=== PATIENT | female | born 1965 | race Caucasian/White ===

== ENCOUNTER → 2023-12-08 14:14 | Outpatient (BNVA) | payer OTHER, SELFPAY | PROVIDERS: Visit Provider Specialist | DX: M79.641 Pain in right hand (principal); M79.642 Pain in left hand; G56.03 Carpal tunnel syndrome, bilateral upper limbs; Z01.818 Encounter for other preprocedural examination | CPT/HCPCS: 36415; 73130; 80053; 81001; 85025 ==

== ENCOUNTER 2024-01-08 07:40 | Day surgery (SDC) | payer OTHER, SELFPAY ==
[2024-01-08] VITALS (11 sets, daily range): BP systolic 116–192; BP diastolic 59–99; PULSE 54–66; RESP 10–18; TEMP 36.1–36.4; O2SAT 91–100; BMI 37.6
[2024-01-08] MEDS: sodium chloride 0.9% 1,000 ML 30 ML IV (08:34)
[2024-01-08] MEDS: acetaminophen 1,000 MG/100 ML PIGGYBACK 400 MG IV (08:35)
[2024-01-08] MEDS: CELEcoxib 200 mg Capsule 400 MG PO (08:35)
--- NOTE | 2024-01-08 08:35 | P.ANESASSM_ITS ---
Pre-Anesthetic Assessment Height/Weight: Height 1.57 m Weight 93.44 kg Temp Pulse Resp BP Pulse Ox O2 Del Method 97.6 F 61 16 116/77 96 Room Air 01/08/24 08:06 01/08/24 08:06 01/08/24 08:06 01/08/24 08:06 01/08/24 08:06 01/08/24 08:06 Operation Date: 01/08/24 09:25 Proposed Procedures p Right Carpal Tunnel Release(Right) - Berna Owens MD Familial anesthetic complications: none Was Beta Trace taken within 24 hours: Yes Was Clonidine taken within 24 hours: N/A Last intake: Intake Last Liquid Date 01/07/24 Last Liquid Time 22:00 Last Solid Date 01/07/24 Last Solid Time 22:00 Social No alcohol and No tobacco Exam alert, oriented x 3, clear to auscultation bilaterally and regular rate & rhythm Airway Submandibular: within normal limits Cervical ROM: within normal limits Mallampati: Class II Dentition: chipped Comments: Comments: Missing several CV/HEM Hypertension Metabolic Morbid Obesity [facility] [place] Fibromyalgia Anesthetic Plan ASA status: 2 Anesthesia: Choice Medications/Allergies Home Medications Medication Instructions Recorded Confirmed Last Taken Type cyclobenzaprine 10 mg tablet 10 mg PO BID PRN muscle spasms 12/08/23 01/07/24 01/07/24 History duloxetine 30 mg capsule,delayed 30 mg PO QPM 12/08/23 01/07/24 01/07/24 History release gabapentin 300 mg capsule 300 mg PO BID 12/08/23 01/07/24 01/07/24 History metoprolol succinate 25 mg 25 mg PO BEDTIME 12/08/23 01/07/24 01/07/24 History tablet,extended release 24 hr sertraline 50 mg tablet 50 mg PO QPM 12/08/23 01/07/24 01/07/24 History Allergies Allergy/AdvReac Type Severity Reaction Status Date / Time hydromorphone [From Dilaudid] Allergy Intermediate rash Verified 01/08/24 08:04 Current Medications Generic Name Dose Route Start Last Admin Trade Name Freq PRN Reason Stop Dose Admin Sodium Chloride 1,000 mls @ 30 mls/hr 01/08/24 08:00 01/08/24 08:34 Sodium Chloride 0.9% IV 01/09/24 07:59 30 mls/hr .Q24H GIOVANNA Administration Data Anesthesia Cardiac Studies: No Data to Display
--- NOTE | 2024-01-08 09:00 | P.HP_ITS ---
Same Day Surgery H&P Indication for Procedure/HPI DATE OF PROCEDURE: January 08, 2024 CHIEF COMPLAINT/INDICATIONFOR SURGICAL PROCEDURE: Right carpal tunnel syndrome PREOP DIAGNOSIS: Right carpal tunnel syndrome PLANNED PROCEDURE: Operation Date: 01/08/24 09:25 Proposed Procedures p Right Carpal Tunnel Release(Right) - Berna Owens MD This 58-year-old woman presented complaining of severe pain consistent with carpal tunnel syndrome. The patient had studies in [place] demonstrating severe right and moderate left median nerve entrapment at the wrist. Medications/Allergies* Home Medications Medication Instructions Recorded Confirmed Type cyclobenzaprine 10 mg tablet 10 mg PO BID PRN muscle spasms 12/08/23 01/07/24 History duloxetine 30 mg capsule,delayed 30 mg PO QPM 12/08/23 01/07/24 History release gabapentin 300 mg capsule 300 mg PO BID 12/08/23 01/07/24 History metoprolol succinate 25 mg 25 mg PO BEDTIME 12/08/23 01/07/24 History tablet,extended release 24 hr sertraline 50 mg tablet 50 mg PO QPM 12/08/23 01/07/24 History Allergies/Adverse Reactions Allergy/AdvReac Type Severity Reaction Status Date / Time hydromorphone [From Dilaudid] Allergy Intermediate rash Verified 01/08/24 08:04 Current Medications: Generic Name Dose Route Start Last Admin Trade Name Freq PRN Reason Stop Dose Admin Sodium Chloride 1,000 mls @ 30 mls/hr 01/08/24 08:00 01/08/24 08:34 Sodium Chloride 0.9% IV 01/09/24 07:59 30 mls/hr .Q24H GIOVANNA Administration Pertinent Exam Findings alert, oriented x 3, clear to auscultation bilaterally, regular rate & rhythm and operative site marked Recommendations Surgery/Procedure today Coding Level of Care Code Acute Code for Chg Fwd
[2024-01-08] MEDS: ceFAZolin 2,000 MG in sodium chloride 0.9% (plus) 50 ML 100 MG IV (09:07)
[2024-01-08] MEDS: BUPivacaine 0.5% INJ 30 mL XX (09:34)
--- NOTE | 2024-01-08 10:41 | PM.OP ---
Operative Report Date of procedure: January 08, 2024 Pre-op diagnosis: Right carpal tunnel syndrome Post-op diagnosis: Right carpal tunnel syndrome Post-op findings: Significant compression across carpal canal and very thickened transverse carpal ligament extending across the wrist crease Procedure done: Right carpal tunnel release Specimens removed/disposition: None Surgeon: Berna Owens MD Certified Forklift Operator: None Anesthesia: General (General per LMA, ASA 2) Estimated blood loss (mL): 2 Tourniquet time (min): 24 (At 250 mmHg) IV fluids (mL): 500 Urine output (mL): 0 (No Harris) Complications: None Condition: stable Disposition: PACU (Then return to same-day surgery for discharge to home) Brief History: This 58-year-old woman presented to the office complaining of severe pain secondary to carpal tunnel syndrome. The patient had been seen in [place], and she had nerve conduction studies documenting carpal tunnel syndrome bilaterally. The right was worse than the left, and the patient wished to proceed with right carpal tunnel release. Procedure: The patient was brought to the operating theater. The patient had a general anesthesia per LMA, ASA 2. The tourniquet was elevated to 250 mmHg for a total tourniquet time of 24 minutes. The patient was also given Ancef 2 g preoperatively. The arm was then prepped and draped with DuraPrep in usual fashion with the arm draped free. A surgical pause was performed. At the time, the surgical pause, we confirmed the site and side of surgery. We also confirmed the patient's identity, appropriate and timely administration of preoperative antibiotics and preoperative surgical markings. An incision was then made along the thenar crease. The incision crossed the wrist joint in a curvilinear fashion. Dissection continued through skin and soft tissues using a scalpel. The palmaris longus was identified along with the transverse carpal ligament. Each of these was released carefully to avoid injury to the median nerve. We were able to dissect gently into the carpal canal which was noted to be quite tight with significant compression across the median nerve. The nerve was visualized and was an hourglass shape. The canal was subsequently palpated to assure there was no bony encroachment upon the canal. There was a quite thickened fibrous tissue within the canal, and this was opened longitudinally as well. The canal was then palpated distally and proximally to assure that my small finger was passed easily without impingement. Finding this to be so, attention was directed to closure. The wound was irrigated with ropivacaine plain. It was then closed with 3-0 nylon in an interrupted mattress fashion. Sterile dressing was then placed consisting of Dermabond, OpSite, fluffed fluffs, soft roll, and an Kenneth wrap. The tourniquet was released after 24 minutes. There were no complications. There were no specimens. The procedure was well tolerated. Plan is the patient will be discharged home. Related Problem List Diagnoses (1) Carpal tunnel syndrome on right:
--- NOTE | 2024-01-08 13:48 | ANE.PACU2 ---
Inpatient post-anesthesia follow up: Airway intact: Yes Vital signs: Temperature 97.1 F Pulse Rate 55 Respiratory Rate 16 Blood Pressure 128/59 Pulse Oximetry 91 Oxygen Delivery Me thod Room Air Oxygen Flow Rate 4 Fraction of Inspir ed Oxygen Hydration adequate: Yes Nausea and vomiting: No Pain level: 2 Mental status: Baseline
== END 2024-01-08 11:53 | disposition home or self-care (01) ==
PROVIDERS: PCP Nurse Practitioner Family; Visit Provider Specialist
PROC: (CPT 64721; principal; 2024-01-08 09:15)
DX: G56.01 Carpal tunnel syndrome, right upper limb (principal)
CPT/HCPCS: 64721; J0131; J0690; J1100; J2405; J2704; J3010; J3490; J7030

== ENCOUNTER → 2024-01-21 14:54 | Outpatient (BNVA) | payer OTHER, SELFPAY | PROVIDERS: PCP Nurse Practitioner Family; Visit Provider Specialist | DX: Z01.818 Encounter for other preprocedural examination (principal); G56.02 Carpal tunnel syndrome, left upper limb | CPT/HCPCS: 36415; 80053; 81003; 85025 ==

== ENCOUNTER 2024-02-10 05:29 | Day surgery (SDC) | payer OTHER, SELFPAY ==
[2024-02-10] VITALS (8 sets, daily range): BP systolic 116–150; BP diastolic 62–78; PULSE 57–81; RESP 13–18; TEMP 36.2–37.1; O2SAT 97–100; BMI 36.7
[2024-02-10] MEDS: CELEcoxib 200 mg Capsule 400 MG PO (06:31)
[2024-02-10] MEDS: gabapentin 300 mg Capsule PO (06:31)
[2024-02-10] MEDS: acetaminophen 1,000 MG/100 ML PIGGYBACK 400 MG IV (06:35)
[2024-02-10] MEDS: sodium chloride 0.9% 1,000 ML 30 ML IV (06:37)
--- NOTE | 2024-02-10 06:44 | ANES.PREANE2 ---
Pre-Anesthetic Assessment Height/Weight: Height 1.57 m Weight 91.172 kg Temp Pulse Resp BP Pulse Ox O2 Del Method 98.7 F 57 L 18 123/75 97 Room Air 02/10/24 06:10 02/10/24 06:10 02/10/24 06:10 02/10/24 06:10 02/10/24 06:10 02/10/24 06:15 Operation Date: 02/10/24 07:00 Proposed Procedures p Carpal Tunnel Release(Left) - Berna Owens MD Familial anesthetic complications: None Was Beta Trace taken within 24 hours: N/A Was Clonidine taken within 24 hours: N/A Last intake: Intake Last Liquid Date 02/09/24 Last Liquid Time 22:00 Last Solid Date 02/09/24 Last Solid Time 20:30 Social No alcohol and No tobacco Exam alert, oriented x 3, clear to auscultation bilaterally and regular rate & rhythm Airway Mallampati: Class II Dentition: chipped CV/HEM Hypertension Metabolic Morbid Obesity Musc/skel Fibromyalgia Anesthetic Plan ASA status: 2 Anesthesia: General Risk of > 500 ml blood loss (7ml/kg in children): No Medications/Allergies Home Medications Medication Instructions Recorded Confirmed Last Taken Type cyclobenzaprine 10 mg tablet 10 mg PO BID PRN muscle spasms 12/08/23 02/09/24 02/09/24 History duloxetine 30 mg capsule,delayed 30 mg PO QPM 12/08/23 02/09/24 02/09/24 History release gabapentin 300 mg capsule 300 mg PO BID 12/08/23 02/09/24 02/09/24 History metoprolol succinate 25 mg 25 mg PO BEDTIME 12/08/23 02/09/24 02/09/24 History tablet,extended release 24 hr sertraline 50 mg tablet 50 mg PO QPM 12/08/23 02/09/24 02/09/24 History Allergies Allergy/AdvReac Type Severity Reaction Status Date / Time hydromorphone [From Dilaudid] Allergy Intermediate rash Verified 02/09/24 12:04 Current Medications Generic Name Dose Route Start Last Admin Trade Name Freq PRN Reason Stop Dose Admin Sodium Chloride 1,000 mls @ 30 mls/hr 02/10/24 06:00 02/10/24 06:37 Sodium Chloride 0.9% IV 02/11/24 05:59 30 mls/hr .Q24H GIOVANNA Administration Data Anesthesia Cardiac Studies: No Data to Display
--- NOTE | 2024-02-10 07:02 | P.HPUD_ITS ---
Surgery/Procedure H&P Update DATE OF PROCEDURE: February 10, 2024 DATE H&P PERFORMED: 01/21/24 H&P UPDATE INFORMATION: I have reviewed H&P completed within last 30 days, I have examined patient prior to procedure, No changes to prior documentation and H[place] is in [facility] [place] on date indicated PLANNED PROCEDURE: Operation Date: 02/10/24 07:00 Proposed Procedures p Carpal Tunnel Release(Left) - Berna Owens MD Related Problem List Diagnoses (1) Carpal tunnel syndrome, left:
[2024-02-10] MEDS: ceFAZolin 2,000 MG in sodium chloride 0.9% (plus) 50 ML 100 MG IV (07:09)
[2024-02-10] MEDS: BUPivacaine 0.5% INJ 30 mL XX (07:31)
--- NOTE | 2024-02-10 08:01 | PM.OP ---
Operative Report Date of procedure: February 10, 2024 Pre-op diagnosis: Left carpal tunnel release Post-op diagnosis: Left carpal tunnel release Post-op findings: Significant compression across carpal canal. Thickened transverse carpal ligament extending across the wrist crease. Procedure done: Left carpal tunnel release Specimens removed/disposition: None Surgeon: Berna Owens MD Installation Helper: None Anesthesia: General (Per LMA, ASA 2) Estimated blood loss (mL): 2 Tourniquet time (min): 20 (At 250 mmHg) IV fluids (mL): 500 Urine output (mL): 0 (No Harris) Complications: None Condition: stable Disposition: PACU (Then return to same-day surgery for discharge to home) Brief History: This 58-year-old woman previously presented for right carpal tunnel release which was accomplished on January 08, 2024. She is doing well following her right carpal tunnel release, and given that she had nearly symmetric symptoms bilaterally, the patient wished to proceed with left carpal tunnel release. Risks and complications were discussed with her. Consents were signed preoperatively in the office. Questions were answered. Procedure: The patient was brought to the operating theater. The patient had a general anesthesia per LMA, ASA 2. The tourniquet was elevated to 250 mmHg for a total tourniquet time of 20 minutes. The patient was also given Ancef 2 g preoperatively. The arm was then prepped and draped with DuraPrep in usual fashion with the arm draped free. A surgical pause was performed. At the time, the surgical pause, we confirmed the site and side of surgery. We also confirmed the patient's identity, appropriate and timely administration of preoperative antibiotics and preoperative surgical markings. An incision was then made along the thenar crease. The incision crossed the wrist joint in a curvilinear fashion. Dissection continued through skin and soft tissues using a scalpel. The palmaris longus was identified along with the transverse carpal ligament. Each of these was released carefully to avoid injury to the median nerve. We were able to dissect gently into the carpal canal which was noted to be quite tight with significant compression across the median nerve. The nerve was visualized and was an hourglass shape. The canal was subsequently palpated to assure there was no bony encroachment upon the canal. There was a quite thickened fibrous tissue within the canal, and this was opened longitudinally as well. The canal was then palpated distally and proximally to assure that my small finger was passed easily without impingement. Finding this to be so, attention was directed to closure. The wound was irrigated with ropivacaine plain. It was then closed with 3-0 nylon in an interrupted mattress fashion. Sterile dressing was then placed consisting of Dermabond, OpSite, fluffed fluffs, soft roll, and an Kenneth wrap. The tourniquet was released after 20 minutes. There were no complications. There were no specimens. The procedure was well tolerated. Plan is the patient will be discharged home. Related Problem List Diagnoses (1) Carpal tunnel syndrome, left:
--- NOTE | 2024-02-10 09:10 | ANE.PACU2 ---
Inpatient post-anesthesia follow up: Airway intact: Yes Vital signs: Temperature 97.6 F Pulse Rate 74 Respiratory Rate 16 Blood Pressure 116/68 Pulse Oximetry 97 Oxygen Delivery Me thod Room Air Oxygen Flow Rate 6 Fraction of Inspir ed Oxygen Hydration adequate: Yes Nausea and vomiting: No Pain level: 1 Mental status: Baseline
== END 2024-02-10 09:13 | disposition home or self-care (01) ==
PROVIDERS: PCP Nurse Practitioner Family; Visit Provider Specialist
PROC: (CPT 64721; principal; 2024-02-10 07:00)
DX: G56.02 Carpal tunnel syndrome, left upper limb (principal); E66.01 Morbid (severe) obesity due to excess calories; Z68.36 Body mass index [BMI] 36.0-36.9, adult; I10 Essential (primary) hypertension; M79.7 Fibromyalgia
CPT/HCPCS: 64721; J0131; J0690; J2250; J2704; J3010; J3490; J7030

== ENCOUNTER 2024-06-10 11:28 | Emergency (ER) | payer OTHER, SELFPAY ==
--- NOTE | 2024-06-10 11:30 | CT_ITS ---
WS: [id number] CT HEAD NONCONTRAST HISTORY: raphael TECHNIQUE: Contiguous axial imaging performed through the brain. Bone and soft tissue windows. Sagitt al and coronal reformats reviewed. All CT scans at [facility] use at least one of these dose optimization techniques: automated exposure control; mA and/or kV adjustment per patient size (includ es targeted exams where dose is matched to clinical indication); or iterative reconstruction. DLP: 1087.48 mGy.cm COMPARISON: None available. No acute intracranial hemorrhage, midline shift or mass effect. No atrophy or prior infarcts or herniation. Ventricles: Normal size with no hydrocephalus. Paranasal sinuses: As visualized are clear. Mastoid air cells: Well pneumatized. Calvarium and scalp: Skull is intact with no soft tissue edema or swelling. CT/CT head wo con* [id number] IMPRESSION: Negative head CT.
[2024-06-10 11:46] VITALS: BP 145/84; PULSE 66; RESP 18; TEMP 36.8; O2SAT 99; BMI 39.3
--- NOTE | 2024-06-10 15:15 | ED_ITS ---
HPI - Headache 2 General: Chief Complaint: Headache Stated Complaint: head pain severe constant 1 wk + Time Seen by Provider: 06/10/24 14:54 History of Present Illness: 58-year-old female comes in today with p ersistent headache x 3 weeks. Patient appears nontoxic. Patient appears in no acute distress. Respirations are even lungs are clear to auscultation. Patient has a history of fibromyalgia, and thyroid nodule. Patient reports nausea and [id number] medications for headache have not been helpful. Patient reports the pain is shooting and intense at times. Related Data Home Medications Medication Instructions Recorded Confirmed cyclobenzaprine 10 mg tablet 10 mg PO BID PRN muscle spasms 12/08/23 02/24/24 duloxetine 30 mg capsule,delayed 30 mg PO QPM 12/08/23 02/24/24 release gabapentin 300 mg capsule 300 mg PO BID 12/08/23 02/24/24 metoprolol succinate 25 mg 25 mg PO BEDTIME 12/08/23 02/24/24 tablet,extended release 24 hr sertraline 50 mg tablet 50 mg PO QPM 12/08/23 02/24/24 Allergies Allergy/AdvReac Type Severity Reaction Status Date / Time hydromorphone [From Dilaudid] Allergy Intermediate rash Verified 02/24/24 13:58 Review of Systems 2 General: Reports: 10 or more systems reviewed and unremarkable except in HPI and below Neuro: Reports: headache(s) PFSH ED 2 PFSH: Surgical History (Updated 02/24/24 @ 14:27 by STEPHANI Pinto) S/P carpal tunnel release Surgery: Left Carpal Tunnel Release DOS: 02/10/2024 Surgeon: Dr. Graciela MD Social History Smoking and tobacco/nicotine status: former use of tobacco/nicotine Physical Exam 2 Const: COMMON NORMALS: alert HENMT: COMMON NORMALS: normocephalic HEAD & SCALP: normocephalic Neck/C-Spine: COMMON NORMALS: full ROM and no meningeal signs Resp: COMMON NORMALS: normal respiratory effort Cardio: COMMON NORMALS: regular rate RATE: regular rate Back/Pelvis: COMMON NORMALS: thoracic and lumbar spine normal to inspection Extremity: COMMON NORMALS: full ROM Neuro: SENSORIUM/ORIENTATION: Yes alert MENINGEAL SIGNS: Yes no meningeal signs GAIT: Yes Normal gait present Skin: COMMON NORMALS: turgor normal GENERAL SKIN EXAM: turgor normal Course 2 Vital Signs: Vital signs: Vital Signs Temperature 98.2 F 06/10/24 11:46 Pulse Rate 64 06/10/24 16:44 Respiratory Rate 16 06/10/24 16:44 Blood Pressure 148/68 06/10/24 16:44 Pulse Oximetry 98 06/10/24 16:44 Oxygen Delivery Me thod Room Air 06/10/24 16:44 MDM - Headache Medical Decision Making This 8-year-old female comes in today with persistent headache for several weeks now. Patient reports no improvement of pain with use [id number] medications. Patient appears nontoxic. Patient appears no acute distress. Respirations are even. Lungs are clear to auscultation. Skin is warm and dry. Differential diagnosis includes migraine headache, tension headache, intervertebral disc disease, facet arthritis, cerebral vascular disease. CT of the head was normal. CTA of the head and neck noted no large intracranial vessel stenosis or occlusion within the head, noted moderate stenosis with narrowing at 45% of the left carotid bulb, and some thyroid nodules. Patient had resolution of headache with headache cocktail. We will go ahead and have patient follow-up with neurology due to the recent increase in headaches and recommended patient restart medication for cholesterol which she has at home and take a baby aspirin daily due to her carotid stenosis. Patient stated understanding and agreed to plan. Lab Data 06/10/24 13:51 06/10/24 13:[address] 06/10/24 11:30 IMPRESSION: Negative head CT. Head/Neck CTA 06/10/24 15:23 IMPRESSION: No intracranial large vessel arterial stenosis or occlusion. IMPRESSION: 1. Moderate calcified plaque is seen involving the left carotid bulb and proximal left cervical internal carotid artery resulting in a minimal focal narrowing of 2.6 mm with a distal reference diameter of 4.7 mm corresponding to a 45% stenosis by NASCET criteria. 2. Thyroid nodules. The thyroid gland would be better assessed with thyroid ultrasound if clinically warranted. COMMENTS: Consistent with the [employer]'s Incidental Findings Committee white paper (J Am Rosetta Radiol 2015): In patients aged 35 years and older with an incidental thyroid nodule equal to or greater than 1.[address], MRI or extrathyroidal US, further evaluation with dedicated thyroid US is recommended for patients with normal life expectancy and without comorbidities. For smaller nodules without suspicious features, no further evaluation or follow up is recommended. REFERENCES: NASCET CRITERIA. The degree of stenosis in the cervical segment of the internal carotid artery is based on NASCET criteria. Normal is no stenosis. Mild is less than 50% stenosis. Moderate is 50-69% stenosis. Severe is 70% to 99% stenosis. Total occlusion is no detectable patent lumen. Laboratory Results WBC Cancelled 06/10/24 13:51 Corrected WBC Cancelled 06/10/24 13:51 RBC Cancelled 06/10/24 13:51 Hgb Cancelled 06/10/24 13:51 Hct Cancelled 06/10/24 13:51 MCV Cancelled 06/10/24 13:51 MCH Cancelled 06/10/24 13:51 MCHC Cancelled 06/10/24 13:51 RDW Cancelled 06/10/24 13:51 Plt Count Cancelled 06/10/24 13:51 MPV Cancelled 06/10/24 13:51 Gran % Cancelled 06/10/24 13:51 Neut % (Auto) Cancelled 06/10/24 13:51 Lymph % (Auto) Cancelled 06/10/24 13:51 Alexander % (Auto) Cancelled 06/10/24 13:51 Eos % (Auto) Cancelled 06/10/24 13:51 Baso % (Auto) Cancelled 06/10/24 13:51 Neut # (Auto) Cancelled 06/10/24 13:51 Lymph # (Auto) Cancelled 06/10/24 13:51 Alexander # (Auto) Cancelled 06/10/24 13:51 Eos # (Auto) Cancelled 06/10/24 13:51 Baso # (Auto) Cancelled 06/10/24 13:51 Absolute Gran (auto) Cancelled 06/10/24 13:51 Nucleated RBC % (auto) Cancelled 06/10/24 13:51 Nucleated RBCs # Cancelled 06/10/24 13:51 Sodium Cancelled 06/10/24 13:51 Potassium Cancelled 06/10/24 13:51 Chloride Cancelled 06/10/24 13:51 Carbon Dioxide Cancelled 06/10/24 13:51 Anion Gap Cancelled 06/10/24 13:51 BUN Cancelled 06/10/24 13:51 Creatinine Cancelled 06/10/24 13:51 GFR Calculation Cancelled 06/10/24 13:51 Glucose Cancelled 06/10/24 13:51 Calculated Osmolality Cancelled 06/10/24 13:51 Calcium Cancelled 06/10/24 13:51 All radiology interpretation(s) finalized by discharge Discharge Plan Discharge Patient Disposition: Home Clinical Impression: Headache Qualifiers: Headache type: unspecified Headache chronicity pattern: unspecified pattern I ntractability: intractable Qualified Code(s): R51.9 - Headache, unspecified Carotid artery stenosis Qualifiers: Laterality: left Qualified Code(s): I65.22 - Occlusion and stenosis of left carotid artery Condition: Stable Prescriptions: No Action sertraline 50 mg tablet 50 mg PO QPM metoprolol succinate 25 mg tablet extended release 24 hr 25 mg PO BEDTIME gabapentin 300 mg capsule 300 mg PO BID cyclobenzaprine 10 mg tablet 10 mg PO BID PRN (Reason: muscle spasms) duloxetine 30 mg capsule,delayed release(DR/EC) 30 mg PO QPM Discharge Orders: Discharge ED (Routine); Ordered 06/10/24 Ordered By: Andre Fisher Referrals: Mahsa Caro APN [Primary Care Provider] - Discharge Diet: Usual diet Discharge Activity: Increase activity as tolerated Patient Instructions: Headache Activity Restrictions/Additional Instructions: Restart your cholesterol medication. Take a daily baby aspirin to help with the carotid stenosis. Case management will contact you regarding follow-up with neurologist for further evaluation and treatment of your headaches and carotid stenosis. Return to ER for severe headache. You may try [id number] Excedrin Migraine for your headache otherwise. Coding Level of Care Code ED Easter Bunny for Burke Lopez
--- NOTE | 2024-06-10 15:23 | CTR_ITS ---
PROCEDURE INFORMATION: Exam: CTA Head With Contrast, Arteriography Exam date and time: 06/10/2024 4:02 PM Age: 58 years old Clinical indication: Pain; Headache; Additional info: Severe headache TECHNIQUE: Imaging protocol: Computed tomographic angiography of the head with contrast. Exam focused on the arteries. 3D rendering (Not supervised by radiologist): MIP and/or 3D reconstructed images were created by the technologist. Radiation optimization: All CT scans at this facility use at least one of these dose optimization techniques: automated exposure control; mA and/or kV adjustment per patient size (includes targeted exams where dose is matched to clinical indication); or iterative reconstruction. Contrast material: [id number]; Contrast volume: 100 ml; Contrast route: INTRAVENOUS (IV); COMPARISON: CT head wo con* [id number] 06/10/2024 12:14 PM RADIATION DOSE METRICS: Total DLP (mGy-cm): 508 FINDINGS: ANTERIOR CIRCULATION: Right internal carotid artery: No significant stenosis or aneurysm is seen involving the petrous, cavernous, or supraclinoid right internal caroid artery. Right middle cerebral artery: No occlusion or significant stenosis. No aneurysm. Right anterior cerebral artery: No occlusion or significant stenosis. No aneurysm. Left internal carotid artery: No significant stenosis or aneurysm is seen involving the petrous, cavernous, or supraclinoid left internal caroid artery. Left middle cerebral artery: No occlusion or significant stenosis. No aneurysm. Left anterior cerebral artery: No occlusion or significant stenosis. No aneurysm. POSTERIOR CIRCULATION: Right vertebral artery: Intradural right vertebral artery demonstrates no occlusion or significant stenosis. No aneurysm. Left vertebral artery: Intradural left vertebral artery demonstrates no occlusion or significant stenosis. No aneurysm. Basilar artery: No occlusion or significant stenosis. No aneurysm. Right posterior cerebral artery: No occlusion or significant stenosis. No aneurysm. Left posterior cerebral artery: No occlusion or significant stenosis. No aneurysm. PROCEDURE INFORMATION: Exam: CTA Neck With Contrast Exam date and time: 06/10/2024 4:02 PM Age: 58 years old Clinical indication: Pain; Headache; Additional info: Severe headache TECHNIQUE: Imaging protocol: Computed tomographic angiography of the neck with contrast. Exam focused on the cervical segments of the vasculature. 3D rendering (Not supervised by radiologist): MIP and/or 3D reconstructed images were created by the technologist. Radiation optimization: All CT scans at this facility use at least one of these dose optimization techniques: automated exposure control; mA and/or kV adjustment per patient size (includes targeted exams where dose is matched to clinical indication); or iterative reconstruction. Contrast material: [id number]; Contrast volume: 100 ml; Contrast route: INTRAVENOUS (IV); COMPARISON: CT head wo con* [id number] 06/10/2024 12:14 PM RADIATION DOSE METRICS: Total DLP (mGy-cm): 508 FINDINGS: Right common carotid artery: No stenosis. No dissection or occlusion. Right internal carotid artery: [id number] calcified plaque is seen involving the right carotid bulb and proximal right cervical internal carotid artery. No significant stenosis seen by NASCET criteria. No dissection or occlusion. Right external carotid artery: No occlusion or stenosis of the origin. Left common carotid artery: No stenosis. No dissection or occlusion. Left internal carotid artery: Moderate calcified plaque is seen involving the left carotid bulb and proximal left cervical internal carotid artery resulting in a minimal focal narrowing of 2.6 mm with a distal reference diameter of 4.7 mm corresponding to a 45% stenosis by NASCET criteria. Left external carotid artery: Moderate narrowing at the origin of the left external carotid artery secondary to calcified plaque. Right vertebral artery: No cervical vertebral artery stenosis. No dissection or occlusion. Left vertebral artery: No cervical vertebral artery stenosis. No dissection or occlusion. The left vertebral artery has its origin off the aortic arch. Soft tissues: Thyroid nodules measuring up to 1.4 cm. The thyroid gland would be better assessed with thyroid ultrasound if clinically warranted. Bones/joints: No acute bony abnormality. CT/CT angio headneck* [id number] IMPRESSION: No intracranial large vessel arterial stenosis or occlusion. IMPRESSION: 1. Moderate calcified plaque is seen involving the left carotid bulb and proximal left cervical internal carotid artery resulting in a minimal focal narrowing of 2.6 mm with a distal reference diameter of 4.7 mm corresponding to a 45% stenosis by NASCET criteria. 2. Thyroid nodules. The thyroid gland would be better assessed with thyroid ultrasound if clinically warranted. COMMENTS: Consistent with the [employer]'s Incidental Findings Committee white paper (J Am Rosetta Radiol 2015): In patients aged 35 years and older with an incidental thyroid nodule equal to or greater than 1.[address], MRI or extrathyroidal US, further evaluation with dedicated thyroid US is recommended for patients with normal life expectancy and without comorbidities. For smaller nodules without suspicious features, no further evaluation or follow up is recommended. REFERENCES: NASCET CRITERIA. The degree of stenosis in the cervical segment of the internal carotid artery is based on NASCET criteria. Normal is no stenosis. Mild is less than 50% stenosis. Moderate is 50-69% stenosis. Severe is 70% to 99% stenosis. Total occlusion is no detectable patent lumen.
[2024-06-10] MEDS: diphenhydrAMINE 50 mg/mL SDV 1mL 12.5 MG IVP (15:54)
[2024-06-10] MEDS: ketorolac 30 mg/mL INJ 15 MG IVP (15:55)
[2024-06-10] MEDS: metoclopramide 5 mg/mL SDV 2 mL 10 MG IVP (15:57)
[2024-06-10] MEDS: dexamethasone 10 mg/mL INJ 6 MG IVP (15:58)
[2024-06-10] MEDS: iohexol 350 mg/mL 500 mL Btl (per mL) IV (16:09)
[2024-06-10 16:44] VITALS: BP 148/68; PULSE 64; RESP 16; O2SAT 98
[2024-06-10 17:18] VITALS: BP 121/70; PULSE 61; O2SAT 95
--- NOTE | 2024-06-11 07:33 | DCPLANNER ---
messaged neuro for er f/u
== END 2024-06-10 17:19 | disposition home or self-care (01) ==
PROVIDERS: Emergency Provider Nurse Practitioner Family; PCP Nurse Practitioner Family
DX: R51.9 Headache, unspecified (principal); I65.22 Occlusion and stenosis of left carotid artery; Z87.891 Personal history of nicotine dependence
CPT/HCPCS: 70450; 70496; 70498; 85025; 96374; 96375; 99285; J1100; J1200; J1885; J2765

== ENCOUNTER 2024-12-14 14:49 | Oncology outpatient (recurring) (ONCR) | payer OTHER, SELFPAY ==
[2024-12-14 15:38] LABS: Basophils % 0.7 %; Eosinophils # 0.1 10^3/uL (0.0-0.8); Eosinophils % 2.4 %; Hematocrit 38.9 % (36-47); Lymphocytes # 1.2 10^3/uL (0.8-4.8); Lymphocytes % 25.7 %; Mean Corpuscular HGB Conc 30.3 g/dL (30-55); Mean Corpuscular Hemoglobin 23.8 pg (27-33); Mean Corpuscular Volume 78.4 fl (85-98); Mean Platelet Volume 10.4 fL (7.4-10.4); Monocytes # 0.2 10^3/uL (0.2-0.9); Neutrophils # 3.04 10^3/uL (1.8-7.7); Nucleated Red Blood Cells % 0 %; Platelet Count 267 10^3/cmm (157-399); Red Blood Count 4.96 10^6/uL (3.85-5.65)
[2024-12-14 15:54] LABS: Alanine Aminotransferase 12 U/L (0-33); Albumin Level 4.1 g/dL (3.5-5.2); Alkaline Phosphatase 90 U/L (35-105); Aspartate Amino Transferase 13 U/L (0-32); Blood Urea Nitrogen 13 mg/dL (6-20); Calcium 9.5 mg/dL (8.5-10.5); Carbon Dioxide 24 mmol/L (22-29); Chloride 104 mmol/L (98-107); Creatinine Clr Calc Pharmacy 95.7689; Ferritin 14 ng/mL (15-150); Globulin 2.5 g/dL (1.3-4.6); Glomerular Filtration Rate 85.9 mL/min (90-130); Glucose 109 mg/dL (65-115); Iron 46 ug/dL (37-145); Osmolality Calculated 291 mOsm/kg (285-295); Percent Saturation 10.5 % (20-50); Sodium 140 mmol/L (136-145); Total Bilirubin 0.3 mg/dL (0.15-1.2); Total Iron Binding Capacity 436 mcg/dl; Total Protein 6.6 g/dL (6.6-8.7); Unsaturated Iron Binding 390 ug/dL (112-347)
[2024-12-14 16:10] LABS: Vitamin B12 250 pg/mL (232-1245)
== END 2024-12-22 23:59 | disposition home or self-care (01) ==
PROVIDERS: PCP Nurse Practitioner Family; Visit Provider Internal Medicine Medical Oncology
DX: D50.9 Iron deficiency anemia, unspecified (principal)
CPT/HCPCS: 36415; 80053; 82607; 82728; 82746; 83540; 83550; 85025

== ENCOUNTER 2025-02-15 06:37 | Day surgery (SDC) | payer OTHER, SELFPAY ==
--- NOTE | 2025-02-15 06:57 | W.PM.OPSFHP ---
Same Day Surgery H&P Indication for Procedure/HPI DATE OF PROCEDURE: February 15, 2025 CHIEF COMPLAINT/INDICATIONFOR SURGICAL PROCEDURE: Iron deficiency anemia PREOP DIAGNOSIS: Iron deficiency anemia PLANNED PROCEDURE: Operation Date: 02/15/25 08:00 Proposed Procedures p EGD [id number] G0105, K92.2 D50.9(Not Applicable) - Jaiden Randhawa MD s Colonoscopy(Not Applicable) - Jaiden Randhawa MD Medications/Allergies* Home Medications ?Medication ?Instructions ?Recorded ?Confirmed ?Type duloxetine 30 mg capsule,delayed 30 mg PO QPM 12/08/23 02/10/25 History release gabapentin 300 mg capsule 300 mg PO BID 12/08/23 02/10/25 History metoprolol succinate 25 mg 25 mg PO BEDTIME 12/08/23 02/10/25 History tablet,extended release 24 hr sertraline 50 mg tablet 50 mg PO QPM 12/08/23 02/10/25 History ascorbic acid (vitamin C) 500 mg 500 mg PO DAILY 12/14/24 02/10/25 History capsule baclofen 10 mg tablet 10 mg PO DAILY PRN Pain 12/14/24 02/10/25 History ferrous fumarate 55 mg (18 mg 55 mg PO BID 01/19/25 02/10/25 History iron) tablet,extended release Allergies/Adverse Reactions Allergy/AdvReac Type Severity Reaction Status Date / Time hydromorphone (From Dilaudid) Allergy Intermediate rash Verified 02/10/25 08:09 Pertinent History/Comorbid Conditions* Surgical History (Updated 02/24/24 @ 14:27 by JOY Pinto-) S/P carpal tunnel release Surgery: Left Carpal Tunnel Release DOS: 02/10/2024 Surgeon: Dr. Graciela MD Social History Smoking and tobacco/nicotine status: former use of tobacco/nicotine Pertinent Exam Findings alert, oriented x 3, clear to auscultation bilaterally, regular rate & rhythm and procedure specific exam findings Abdomen soft nontender nondistended Recommendations Risks and benefits of procedure reviewed and Patient/family agree to proceed Surgery/Procedure today Other Plans: Proceeding with EGD and colonoscopy to workup for iron deficiency anemia. Coding Level of Care Code Acute Code for Chg Fwd
--- NOTE | 2025-02-15 06:59 | ANES.PREANE2 ---
Pre-Anesthetic Assessment Height/Weight: Height 1.57 m Preop Diagnosis: Iron deficiency anemia Operation Date: 02/15/25 08:00 Proposed Procedures p EGD [id number] G0105, K92.2 D50.9(Not Applicable) - Jaiden Randhawa MD s Colonoscopy(Not Applicable) - Jaiden Randhawa MD Familial anesthetic complications: None Was Beta Trace taken within 24 hours: N/A Was Clonidine taken within 24 hours: N/A Last intake: > 8 hrs Social No alcohol and No tobacco Exam alert, oriented x 3, clear to auscultation bilaterally and regular rate & rhythm Airway Mallampati: Class I Dentition: chipped CV/HEM Hypertension Musc/skel Fibromyalgia Anesthetic Plan ASA status: 2 Anesthesia: MAC Risk of > 500 ml blood loss (7ml/kg in children): No Medications/Allergies Home Medications ?Medication ?Instructions ?Recorded ?Confirmed ?Last Taken ?Type duloxetine 30 mg capsule,delayed 30 mg PO QPM 12/08/23 02/10/25 02/09/25 History release gabapentin 300 mg capsule 300 mg PO BID 12/08/23 02/10/25 02/09/25 History metoprolol succinate 25 mg 25 mg PO BEDTIME 12/08/23 02/10/25 02/09/25 History tablet,extended release 24 hr sertraline 50 mg tablet 50 mg PO QPM 12/08/23 02/10/25 02/09/25 History ascorbic acid (vitamin C) 500 mg 500 mg PO DAILY 12/14/24 02/10/25 02/09/25 History capsule baclofen 10 mg tablet 10 mg PO DAILY PRN Pain 12/14/24 02/10/25 02/09/25 History ferrous fumarate 55 mg (18 mg 55 mg PO BID 01/19/25 02/10/25 02/09/25 History iron) tablet,extended release ondansetron 8 mg disintegrating 8 mg PO Q8H PRN nausea and 02/14/25 Unknown Rx tablet vomiting #3 tabs Allergies Allergy/AdvReac Type Severity Reaction Status Date / Time hydromorphone (From Dilaudid) Allergy Intermediate rash Verified 02/10/25 08:09 PFSH Anesthesia Surgical History S/P carpal tunnel release Surgery: Left Carpal Tunnel Release DOS: 02/10/2024 Surgeon: Dr. Graciela MD Social History Smoking and tobacco/nicotine status: former use of tobacco/nicotine
[2025-02-15 07:14] VITALS: BP 115/85; PULSE 61; RESP 18; TEMP 36.1; O2SAT 100; BMI 38.5
[2025-02-15] MEDS: sodium chloride 0.9% 1,000 ML 15 ML IV (07:19)
[2025-02-15 08:16] VITALS: BP 102/60; PULSE 54; RESP 20; TEMP 36.4; O2SAT 95
[2025-02-15 08:49] VITALS: BP 147/74; PULSE 57; RESP 18; O2SAT 99
--- NOTE | 2025-02-15 08:52 | ANE.PACU2 ---
Inpatient post-anesthesia follow up: Airway intact: Yes Vital signs: Temperature 97.5 F Pulse Rate 57 Respiratory Rate 18 Blood Pressure 147/74 Pulse Oximetry 99 Oxygen Delivery Me thod Room Air Oxygen Flow Rate Fraction of Inspir ed Oxygen Hydration adequate: Yes Nausea and vomiting: No Pain level: 1 Mental status: Baseline
== END 2025-02-15 08:57 | disposition home or self-care (01) ==
PROVIDERS: PCP Nurse Practitioner Family; Visit Provider Student in an Organized Health Care Education/Training Program
PROC: 0DJ08ZZ Inspection of Upper Intestinal Tract, Via Natural or Artificial Opening Endoscopic (ICD-10-PCS; principal; 2025-02-15 08:00)
PROC: 0DJD8ZZ Inspection of Lower Intestinal Tract, Via Natural or Artificial Opening Endoscopic (ICD-10-PCS; CPT 45378; 2025-02-15 08:00)
DX: Z12.11 Encounter for screening for malignant neoplasm of colon (principal); K29.30 Chronic superficial gastritis without bleeding; K31.A0 Gastric intestinal metaplasia, unspecified; D50.9 Iron deficiency anemia, unspecified; I10 Essential (primary) hypertension; M79.7 Fibromyalgia; Z88.5 Allergy status to narcotic agent; Z79.899 Other long term (current) drug therapy; Z87.891 Personal history of nicotine dependence
CPT/HCPCS: 43239; 45378; 88305; 88342; J2704; J7030

== ENCOUNTER 2025-03-23 08:56 | Outpatient (CLI) | payer OTHER, SELFPAY ==
--- NOTE | 2025-03-23 09:00 | MM_ITS ---
WS: [id number] BILATERAL SCREENING DIGITAL TOMOSYNTHESIS MAMMOGRAM WITH CAD HISTORY: SCREENING COMPARISON: None available. Bilateral CC and MLO views with tomosynthesis and synthetic mammography submitted. Computer aided detection analyzed. Breast composition: The breasts are almost entirely fatty. No suspicious masses, microcalcifications or architectural distortion. MM/MM scr BI tomosynthesis [id number] IMPRESSION: BI-RADS: 1 - Negative. FOLLOW UP: 1 Year Follow-up
== END 2025-03-23 08:57 | disposition home or self-care (01) ==
LOC: MOBLMAM 09:00
PROVIDERS: PCP Nurse Practitioner Family; Visit Provider Nurse Practitioner Family
DX: Z12.31 Encounter for screening mammogram for malignant neoplasm of breast (principal); R92.313 Mammographic fatty tissue density, bilateral breasts
CPT/HCPCS: 77063; 77067